=== PATIENT | male | born 1990 | race African-American/Black ===

== ENCOUNTER 2016-12-29 05:05 | Emergency (ER) | payer OTHER ==
[~2016-12-29] VITALS: Ht 188 cm; Wt 63.5 kg
[~2016-12-29 05:05] MED LIST: PRILOSEC40 MG; REGLAN10 M1
[2016-12-29 05:11] VITALS: BP 151/82
[2016-12-29] MEDS: KETOROLAC 30 MG/ML VIAL IVP ONE (05:54)
[2016-12-29] MEDS: ONDANSETRON 4 MG/2 ML VIAL IVP ONE (05:54)
[2016-12-29] MEDS: NACL 0.9% 500 ML IV ONE (06:16)
[2016-12-29 07:15] VITALS: BP 139/94
== END 2016-12-29 07:15 | disposition home or self-care (01) ==
LOC: MED 05:05
DX: A08.4 Viral intestinal infection, unspecified (principal); R03.0 Elevated blood-pressure reading, without diagnosis of hypertension; K21.9 Gastro-esophageal reflux disease without esophagitis; I10 Essential (primary) hypertension; Z79.899 Other long term (current) drug therapy
CPT/HCPCS: 36415; 74022; 80053; 83690; 85025; 96361; 96374; 96375; 99285; J1885; J2405; J7030

== ENCOUNTER 2016-12-30 13:47 | Emergency (ER) | payer OTHER ==
[~2016-12-30] VITALS: Ht 188 cm; Wt 68.0 kg
[2016-12-30 14:06] VITALS: BP 155/92
[2016-12-30] MEDS: FAMOTIDINE 20 MG/2 ML VIAL IVP ONE (14:44)
[2016-12-30] MEDS: KETOROLAC 30 MG/ML VIAL IVP ONE (14:45)
[2016-12-30] MEDS: ALUMINUM HYD/MAG/SIMETHICONE 30 ML UDC PO ONE (14:55)
[2016-12-30] MEDS: DICYCLOMINE HCL LIQUID 10 MG/5 ML UDC PO ONE (14:55)
[2016-12-30] MEDS: NACL 0.9% 1,000 ML IV ONE (14:56)
[2016-12-30] MEDS: ONDANSETRON 4 MG/2 ML VIAL IVP ONE (14:56)
[2016-12-30] MEDS: POTASSIUM CHLORIDE 10 MEQ TABER PO ONE (15:29)
[2016-12-30] MEDS: MORPHINE SULFATE 4 MG/ML SYR IVP ONE (15:48)
[2016-12-30] MEDS: MAGNESIUM CITRATE 300 ML BTL PO ONE (16:38)
[2016-12-30 16:50] VITALS: BP 156/94
== END 2016-12-30 16:50 | disposition home or self-care (01) ==
LOC: MED 13:47
DX: K59.00 Constipation, unspecified (principal); E87.6 Hypokalemia; F12.10 Cannabis abuse, uncomplicated; F14.10 Cocaine abuse, uncomplicated; I10 Essential (primary) hypertension
CPT/HCPCS: 36415; 74176; 80053; 80305; 81001; 82150; 83690; 85025; 85610; 85730; 96361; 96374; 96375; 99285; J1885; J2270; J2405; J3490; J7030

== ENCOUNTER 2017-02-11 14:25 | Emergency (ER) | payer OTHER ==
[~2017-02-11] VITALS: Ht 188 cm; Wt 77.1 kg
[~2017-02-11 14:25] MED LIST changes: +METO-460; +OMEP40EC1; -PRILOSEC40 MG; -REGLAN10 M1
[2017-02-11 14:37] VITALS: BP 146/108
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
[2017-02-11] MEDS ORDERED: MORPHINE SULFATE 2 MG/ML SYR IVP ONE (15:15)
[2017-02-11] MEDS ORDERED: DICYCLOMINE HCL LIQUID 10 MG/5 ML UDC PO ONE (15:15)
[2017-02-11] MEDS ORDERED: LIDOCAINE VISCOUS 2% 20 ML UDC PO ONE (15:15)
[2017-02-11] MEDS ORDERED: ALUMINUM HYD/MAG/SIMETHICONE 30 ML UDC PO ONE (15:15)
[2017-02-11] MEDS ORDERED: NACL 0.9% 1,000 ML IV ONE (15:15)
[2017-02-11 15:32] LABS: BASOPHILS # (AUTO) 0.2 K/uL (0.00-0.22); BASOPHILS % (AUTO) 2.1 % (0.0-2.0); EOSINOPHILS % (AUTO) 0.2 % (0.0-4.0); HEMATOCRIT 51.4 % (36-52); LYMPHOCYTES # (AUTO) 0.5 K/uL (2.0-11.5); LYMPHOCYTES % (AUTO) 6.2 % (20.5-51.1); MEAN CORPUSCULAR HEMOGLOBIN 30 pg (27-31); MEAN CORPUSCULAR HGB CONC 33 g/dL (33-37); MEAN CORPUSCULAR VOLUME 92 fL (80-94); MONOCYTES # (AUTO) 0.3 K/uL (0.8-1.0); MONOCYTES % (AUTO) 3.3 % (1.7-9.3); NEUTROPHILS # (AUTO) 7.1 K/uL (1.8-7.7); NEUTROPHILS % (AUTO) 88.2 % (42.2-75.2); PLATELET COUNT (AUTO) 254 K/uL (140-450); RED CELL DISTRIBUTION WIDTH 12.1 % (11.6-13.7); WHITE BLOOD COUNT (AUTO) 8.1 K/uL (4.8-10.8)
[2017-02-11 15:55] LABS: ALBUMIN 4.3 g/dL (3.4-5.0); ANION GAP 12.3 (8-16); CARBON DIOXIDE 32.1 mmol/L (21-32); CREATININE 1.1 mg/dL (0.7-1.3); POTASSIUM 3.4 mmol/L (3.5-5.1); TOTAL BILIRUBIN 0.5 mg/dL (0.0-1.0)
[2017-02-11 16:16] LABS: PROTHROMBIN TIME 10.9 secs (10.8-13.4)
--- NOTE | 2017-02-11 16:37 | NUR ---
ER MD DR. DYSON REEVALUATING PT AT BEDSIDE.
[2017-02-11 17:15] VITALS: BP 146/86
--- NOTE | 2017-02-11 17:15 | NUR ---
Patient discharged with BP 146/86; DENIES HEADACHE OR DIZINESS AT THIS TIME. Written and verbal after care instructions given and explained. Patient alert, oriented and verbalized understanding of instructions. Wheel Chair Assisted with to car. All questions addressed prior to discharge. ID band removed. Patient advised to follow up with PMD. Rx of ZOFRAN & NORCO given. Patient educated on indication of medication including possible reaction and side effects. Opportunity to ask questions provided and answered.
== END 2017-02-11 17:15 | disposition home or self-care (01) ==
LOC: MED 14:25
DX: A08.4 Viral intestinal infection, unspecified (principal); I10 Essential (primary) hypertension
CPT/HCPCS: 36415; 80053; 83690; 85025; 85610; 85730; 96361; 96374; 99284; J2270; J7030

== ENCOUNTER 2017-11-21 12:34 | Emergency (ER) | payer SELFPAY ==
[~2017-11-21] VITALS: Ht 185.4 cm; Wt 86.2 kg
[2017-11-21 12:38] VITALS: BP 129/86
--- NOTE | 2017-11-21 12:45 | NUR ---
pt ambulates to bed 11 at this time w/ even, steady gait. report given to yasmani gibson
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
[2017-11-21] MEDS ORDERED: traMADol 50 MG TAB PO ONE (12:55)
[2017-11-21] MEDS ORDERED: IBUPROFEN 600 MG TAB PO ONE (12:55)
--- NOTE | 2017-11-21 13:00 | NUR ---
xray by bedside
--- NOTE | 2017-11-21 13:39 | NUR ---
verbal d/c order from er md nayeli hogan for splint. instead verbal order for ger wrap to left foot.
[2017-11-21 14:13] VITALS: BP 124/80
--- NOTE | 2017-11-21 14:13 | NUR ---
Patient discharged with v/s stable. Written and verbal after care instructions given and explained. Patient alert, oriented and verbalized understanding of instructions. Ambulatory with steady gait. All questions addressed prior to discharge. ID band removed. Patient advised to follow up with PMD. Rx of Ketorolac Tromethamine given. Patient educated on indication of medication including possible reaction and side effects. Opportunity to ask questions provided and answered.
== END 2017-11-21 14:13 | disposition home or self-care (01) ==
LOC: MED 12:34
DX: S93.602A Unspecified sprain of left foot, initial encounter (principal); I10 Essential (primary) hypertension; V20.4XXA Motorcycle driver injured in collision with pedestrian or animal in traffic accident, initial encounter; Y93.55 Activity, bike riding; Y92.89 Other specified places as the place of occurrence of the external cause; Y99.8 Other external cause status
CPT/HCPCS: 73610; 73630; 99284